=== PATIENT | male | born 1970 | race Caucasian/White ===

== ENCOUNTER 2016-09-26 09:37 | Emergency (ER) | payer OTHER ==
[2016-09-26 10:31] VITALS: RESP 16; TEMP 97.5
--- NOTE | 2016-09-26 11:38 | PDOC ---
Shoulder Injury/Pain HPI - General Chief Complaint: Upper Extremity Problem/Injury Stated Complaint: LEFT SHOULDER PAIN/INJURY Date Seen by Provider: 09/26/16 Time Seen by Provider: 09:45 Source: POSITIVE: Patient Exam Limitations: POSITIVE: No limitations Nurse's Notes Reviewed & Considered: Yes - History of Present Illness Initial Comments: The patient is a 45-year-old male. Patient was pulling on some drywall and the drywall recoiled forcing his left shoulder into extension. He complains of pain over the anterior aspect of the left shoulder over the area of the insertion of the bicipital tendon. He denies any gross deformities. No numbness or tingling. No sensory or motor symptoms. He denies any other injuries. He states he is allergic to oxycodone. Have you received a tetanus shot in the past 10 years?: Yes Location: Left Shoulder Timing: REPORTS: Abrupt Duration: 1 hour Severity: Moderate Quality: REPORTS: "Pain" Location at Time of Onset: REPORTS: Work Context: REPORTS: Other (Pulling on drywall with his left hand; left shoulder forced into extension when drywall recoiled.) Associated Symptoms: DENIES: Weakness, Bruising, Unable to Move Shoulder, Not Using Arm, Tingling, Numbness, Other Any Prior Injuries Related to Current Complaint?: No - Patient Home Medications Home Medications: Home Medications Diltiazem HCl [Cardizem Cd] 360 mg PO BEDTIME 09/26/16 Ketorolac Tromethamine [Toradol] 10 mg PO Q4H PRN #20 tablet 09/26/16 - Patient Allergies Allergies/Adverse Reactions: Allergies Allergy/AdvReac Type Severity Reaction Status Date / Time oxycodone Allergy Intermediate HALLUCINATI Verified 09/26/16 10:20 ONS Beta-Blockers AdvReac Intermediate VOMITING Verified 09/26/16 10:20 (Beta-Adrenergic Bloc Past Medical History - heen HEENT History: Denies History Cardiovascular History: Hypertension, Arrhythmia Additional Cardiovasular History: A-FIB Respiratory History: Denies History Gastrointestinal History: Denies History Genitourinary History: Denies History Endocrine History: Denies History Musculoskeletal History: Joint Pain Neurological History: Denies History Blood Disorders: Denies History Psychiatric History: Denies History History of Sexually Transmitted Diseases: No Male Reproductive History: Denies History In Past Year Been Physically Harmed or Verbally Threatened: No History of MDRO: Yes Type of MDRO: MRSA Tobacco Use: Former Smoker Alcohol Use: None Substance Use Type: Marijuana Previous Surgical History: Yes Type / Date of Surgery: LEFT AND RIGHT ACL REPAIRS, REATTACH LEFT PATELLA, RIGHT SHOULDER SURGERY, ORIF RIGHT AND LEFT HIPS, RIGHT HAND SURGERY Significant Family History: No pertinent family hx Past Medical History Reviewed: Reviewed - No Changes ROS - Limitations ROS Limitations: No Limitations Constitution: REPORTS: Denies Symptoms Cardiovascular: REPORTS: Denies Cardiac Symptoms Respiratory: REPORTS: Denies Resp Symptoms Neurological: REPORTS: Denies Neuro Symptoms Gastrointestinal: REPORTS: Denies GI Symptoms Endocrine: REPORTS: Denies Symptoms Musculoskeletal: REPORTS: Joint Pain (Left shoulder), Recent Injury (Left shoulder as above) Genitourinary: REPORTS: Denies Symptoms Eyes: REPORTS: Denies Symptoms ENT: REPORTS: Denies Symptoms Skin: REPORTS: Denies Skin Symptoms Lympathic: REPORTS: Denies Lympathic Symptoms Immunologic: POSITIVE: Denies Symptoms Psychiatric: POSITIVE: Denies Psych Symptoms Shoulder Injury/Pain Exam - General Appearance General Appearance: POSITIVE: Alert, Cooperative, No Evidence of Trauma, Mild Distress. NEGATIVE: No Acute Distress - Upper Extremity Shoulder: POSITIVE: Full ROM (Range of motion left shoulder is full but patient has pain over the anterior aspect of the shoulder with movement of the shoulder in any dimension. Flexion and extension of the elbow is also full, but flexion of the elbow produces some tenderness over the area of the insertion of the bicipital tendon.), No Dislocation, Soft-Tissue Tenderness, Bony Tenderness, Held in Adduction, See Diagram. NEGATIVE: Swelling, Ecchymosis, Clavicular Deformity, AC Drop-Off, Anterior Fullness, Limited ROM Upper Extremity: POSITIVE: Uninjured Below Shoulder Neuro/Vascular: POSITIVE: Sensation Normal, Motor Normal, No Vascular Compromise Skin: POSITIVE: Warm, Dry - Neck / Back Neck/Back: POSITIVE: Normal Inspection, Non-Tender, Painless ROM - Respiratory / CVS Respiratory / CVS: POSITIVE: Chest Non Tender, No Ecchymosis, Breath Sounds Normal, No Respiratory Distress, Heart Sounds Normal, Regular Rate/Rhythm Peripheral Pulses: Radial (R): 2+, Radial (L): 2+ Procedure - Splinting Time Splint Applied: 11:15 Location: left shoulder immobilizer Pre-Proc Neuro Vasc Exam: Normal Splint Type: Shoulder Immobilizer Applied By:: Nurse Images - Upper Extremities Upper Extremities: 1 - Area of maximum pain and pain on palpation Shoulder Pain/Injury Progress - Results Reviewed by me Xrays/CTs/US Reviewed by me: Yes Discussed with Radiologist: No Radiology Findings: X-ray left shoulder shows no fractures or dislocations - Patient's Progress Pain Medication Addressed: POSITIVE: Yes (Toradol, one every 4-6 hours as necessary for pain up to 4 tablets in 24 hours) School/Work Release Addressed: POSITIVE: Yes (No use of left arm for 3 or 4 days ; follow-up with primary care provider in 3 or 4 days.) Re-Examine Time:: 11:20 Re-Examine Comment: Some pain relief with shoulder immobilizer. Status: POSITIVE: Improved, Re-Examined - Consult Counseled: POSITIVE: Patient, RE: Radiology Results, RE: DX, RE: Need for F/U Patient Care Time - Estimated PCT Patient Care Time (In Minutes): 35 Vital Signs - Recent Vital Signs Vital Signs: Vital Signs (Last 8 hours) Temp Pulse Resp BP Pulse Ox 09/26/16 09:47 97.5 F 77 16 132/86 95 - VS Reviewed Vital Signs Reviewed: Yes Discharge Clinical Impression: Tendonitis, bicipital Discharge Disposition: Discharged to Home Condition: Stable Prescriptions / Orders: Ketorolac Tromethamine [Toradol] 10 mg PO Q4H PRN #20 tablet PRN Reason: Pain Patient Instructions Given at Discharge: Shoulder Sprain (ED) Additional Instructions: Wear shoulder immobilizer for 2 or 3 days. Follow-up with your primary care provider or orthopedist in 3 or 4 days. At that time he may need to start physical therapy, or your provider may elect to get an MRI of your injured shoulder. Toradol, one every 4 hours as necessary for pain not to exceed 4 pills in 24 hours. Cool compresses to your shoulder. Return here anytime if condition worsens. Follow-up with your primary care provider. Follow Up With: NONE,NONE [Primary Care Provider] - (Instructions as above. Follow-up with your primary care provider or orthopedist in 3 or 4 days. Return here as necessary.)
--- NOTE | 2016-09-26 11:51 | DI ---
History: Trauma Comparison: None Findings: No fracture No malalignment No destructive changes The degenerative changes Acromioclavicular joint, and glenohumeral joint are unremarkable in appearance. Impression Unremarkable plain film study of the shoulder
== END 2016-09-26 11:30 | disposition home or self-care (01) ==
LOC: ER 09:37
DX: M75.22 Bicipital tendinitis, left shoulder (principal); M25.512 Pain in left shoulder; X50.9XXA Other and unspecified overexertion or strenuous movements or postures, initial encounter; Y99.0 Civilian activity done for income or pay
CPT/HCPCS: 73030; 99282